=== PATIENT | male | born 1970 | race Caucasian/White ===

== ENCOUNTER 2019-03-14 09:33 | Emergency (ER) | payer OTHER ==
--- NOTE | 2019-03-14 10:23 | ED Physician Chart ---
ED Chief Complaint/HPI - Patient Information Date Seen:: 03/14/19 Time Seen:: 10:00 Chief Complaint:: Left Arm Redness History of Present Illness:: onset x 3 days of left forearm and left wrist pain, swelling, and erythema after an accidental fall 3 days [employer]; no report of LOC, ALOC, AMS, syncope, H/As , neck pain, weakness, dizziness, vertigo, paresthesias, C/P, SOB, Abd. Pain, A/ N/V/D/C, fever, chills, or urinary s/s; pt's last tetanus shot: > 5years Allergies:: Allergies Allergy/AdvReac Type Severity Reaction Status Date / Time No Known Allergies Allergy Verified 03/14/19 09:59 Vitals:: Vital Signs - 8 hr 03/14/19 09:59 Temp 98.4 F HR 105 RR 16 BP 164/114 O2 Sat % 98 Historian:: Patient, EMS Review:: Nurse's Note Reviewed, Old Chart Reviewed, EMS run form Reviewed ED Review of Systems - Review of Systems General/Constitutional: No fever, No chills, No weight loss, No weakness, No diaphoresis, No edema, No loss of appetite Skin: No skin lesions, No rash, No bruising Head: No headache, No light-headedness Eyes: No loss of vision, No pain, No diplopia ENT: No earache, No nasal drainage, No sore throat, No tinnitus Neck: No neck pain, No swelling, No thyromegaly, No stiffness, No mass noted Cardio Vascular: No chest pain, No palpitations, No PND, No orthopnea, No edema Pulmonary: No SOB, No cough, No sputum, No wheezing GI: No nausea, No vomiting, No diarrhea, No pain, No melena, No hematochezia, No constipation, No hematemesis G/U: No dysuria, No frequency, No hematuria, No nacturia Musculoskeletal: No bone or joint pain, No back pain, No muscle pain Endocrine: No polyuria, No polydipsia Psychiatric: No prior psych history, No depression, No anxiety, No suicidal ideation, No homicidal ideation, No auditory hallucination, No visual hallucination Hematopoietic: No bruising, No lymphadenopathy Allergic/Immuno: No urticaria, No angioedema Neurological: No syncope, No focal symptoms, No weakness, No paresthesia, No headache, No seizure, No dizziness, No confusion, No vertigo ED Past Medical History - Past Medical History Obtainable: Yes Past Medical History: HTN, DM, Dyslipidemia Family History: HTN Social History: Non Smoker, No Alcohol, No Drug Use, Surgical History: None Psychiatricy History: None Medication: Reviewed Family Medical History - Family Member Mother History Unknown: Yes ED Physical Exam - Physical Examination General/Constitutional: Awake, Well-developed, well-nourished, Alert, No distress, GCS 15, Non-toxic appearing, Ambulatory Head: Atraumatic Eyes: Lids, conjuctiva normal, PERRL, EOMI Skin: Nl inspection, No rash, No skin lesions, No ecchymosis, Well hydrated, No lymphadenopathy ENMT: External ears, nose nl, TM canals nl, Nasal exam nl, Lips, teeth, gums nl , Oropharynx nl, Tonsils nl Neck: Nontender, Full ROM w/o pain, No JVD, No nuchal rigidity, No bruit, No mass, No stridor Other Neck comments:: supple; no meningeal signs; no cervical tenderness Respiratory: Nl effort/Exclusion, Clear to Auscultation, No Wheeze/Rhonchi/Rales Cardio Vascular: RRR, No murmur, gallop, rubs, NL S1 S2, Carotid/Femoral/Distal pulses equal bilaterally GI: No tenderness/rebounding/guarding, No organomegaly, No hernia, Normal BS's, Nondistended, No mass/bruits, No McBurney tenderness Other GI comments:: no pulsatile masses : No CVA tenderness Extremities: No tenderness or effusion, Full ROM, normal strength in all extremities, No edema, Normal digits & nails Other Extremities comments:: Left Forearm and Left Wrist Cellulitis and Tenderness; good NV functions Neuro/Psych: Alert/oriented, DTR's symmetric, Normal sensory exam, Normal motor strength, Judgement/insight normal, Mood normal, Normal gait, No focal deficits Misc: Normal back, No paraspinal tenderness ED Labs/Radiology/EKG Results - Lab Results Results: Laboratory Tests 03/14/19 09:53 POC Glucose 340 H Comments:: Reviewed - Radiology Results Comments:: + Comminuted, Angulated Left Distal Radius Bone Fracture of the Left Wrist - EKG Interpretations EKG Time:: 10:26 Rate & Rhythm: 90; NSR Comments:: LVH; non-specific st-t changes ED Septic Shock - . Is Septic Shock (SBP<90, OR Lactate>4 mmol\L) present?: No - <6hrs of presentation: Vital Signs: Vital Signs - 8 hr 03/14/19 09:59 Temp 98.4 F HR 105 RR 16 BP 164/114 O2 Sat % 98 ED Reassessment (Disposition) - Reassessment Reassessment Condition:: Improved - Diagnosis Diagnosis:: LUE Cellulitis; HTN; DM; Left Wrist/Forearm Fractures; Hyponatremia; Hypokalemia ; Dehydration; Hyperglycemia; Hypoalbuminemia; Tachycardia; Uncontrolled Hypertension - Aftercare/Follow up Instructions Aftercare/Follow-Up Instructions:: Counseled pt regarding lab results/diagnosis & need follow up, Counseled pt & family regarding lab results/diagnosis & need follow up - Patient Disposition Discharge/Transfer:: Acute Care (other hosp) Accepting Physician:: [facility] Hospitalist Physician Time Called:: 1145 Time Responded:: 11:45 Admitted to:: Telemetry Spoke to:: [facility] Ad[facility] Condition at Disposition:: Stable, Improved (pt to be transferred via [facility] as a direct admission to [facility] Telemetry Unit)
[2019-03-14] MEDS ORDERED: NITROGLYCERIN OINT 2% 1 INCH PACKET TP ONE (10:33)
[2019-03-14] MEDS: cefTRIAXone 1 GM in Sodium Chloride 0.9% 50 ML IV ONE (10:47)
[2019-03-14] MEDS: NITROGLYCERIN OINT 2% 1 INCH PACKET TP STA (10:54)
[2019-03-14 11:03] LABS: URINE SOURCE MIDSTREAM
[2019-03-14 11:07] LABS: HEMATOCRIT 46.3 % (41.0-60); HEMOGLOBIN 15.7 gm/dL (12-16); MEAN CELL VOLUME 88.5 fl (80-99); MEAN CORPUSCULAR HGB CONC 33.9 pg (28.0-36.0); PLATELET COUNT 278 Th/cmm (150-400); RED BLOOD COUNT 5.23 Mil/cmm (4.30-5.70); RED CELL DISTRIBUTION WIDTH 13.2 % (11.5-20.0); URINE BILIRUBIN SMALL (NEGATIVE); URINE BLOOD TRACE (NEGATIVE); URINE GLUCOSE (UA) >=1000 mg/dL (NEGATIVE); URINE KETONE 40 mg/dL (NEGATIVE); URINE LEUKOCYTE ESTERASE NEGATIVE (NEGATIVE); URINE MICROSCOPIC INDICATED? YES; URINE NITRATE NEGATIVE (NEGATIVE); URINE PH 6.5 (4.6 - 8.0); URINE PROTEIN 100 mg/dL (NEGATIVE); WHITE BLOOD COUNT 8.3 Th/cmm (4.8-10.8)
--- NOTE | 2019-03-14 11:21 | Diagnostic Imaging Report ---
Left forearm (2 views) HISTORY: Pain, trauma The exam demonstrates a comminuted, displaced fracture of the distal radius. The radiocarpal joint space appears normal. IMPRESSION: Distal radial fracture
--- NOTE | 2019-03-14 11:21 | Diagnostic Imaging Report ---
Left wrist (3 views) HISTORY: Pain, trauma There is a comminuted, displaced fracture of the distal radius. The radiocarpal joint space appears normal. No focal abnormality seen about the carpal or metacarpal regions. IMPRESSION: 1. Distal radial fracture
[2019-03-14 11:40] LABS: INR 0.92 (0.5-1.4); PROTHROMBIN TIME (TEST) 9.6 SECONDS (9.5-11.5)
[2019-03-14 11:47] LABS: TROP I 0.04 ng/mL (0.01-0.05)
[2019-03-14 11:48] LABS: ALB/GLOB RATIO 1.6 (1.0-1.8); ALBUMIN 3.7 gm/dL (4.2-5.5); ALKALINE PHOSPHATASE 92 U/L (34-104); ANION GAP 15.4 (7.0-16.0); BILIRUBIN,TOTAL 0.9 mg/dL (0.3-1.0); BUN - UREA NITROGEN 11 mg/dL (7-25); CALCIUM SERUM 8.6 mg/dL (8.6-10.3); CARBON DIOXIDE 26.5 mEq/L (21.0-31.0); CHLORIDE 96 mEq/L (98-107); CREATININE - SERUM 0.6 mg/dL (0.7-1.3); CREATININE KINASE 40 U/L (30-223); GFR AFRICAN-AMERICAN > 60.0 ml/min (>90); GFR NON AFRICAN-AMERICAN > 60.0 ml/min; GLUCOSE 326 mg/dL (70-105); SGOT 14 U/L (13-39); SGPT/ALT 24 U/L (7-52); SODIUM SERUM 135 mEq/L (136-145)
[2019-03-14 11:56] LABS: POTASSIUM SERUM 2.9 mEq/L (3.5-5.1)
[2019-03-14 12:02] LABS: URINE CLARITY CLEAR (CLEAR); URINE COLOR YELLOW
[2019-03-14 12:03] LABS: URINE BACTERIA FEW /hpf (NONE SEEN); URINE EPITHELIAL CELLS NONE SEEN /lpf (FEW); URINE WBC 0-2 /hpf (0-5)
[2019-03-14] MEDS: Potassium Chloride 20 mEq ER Tab PO ONE (13:07)
[2019-03-14] MEDS ORDERED: Potassium Chloride 20 mEq ER Tab PO ONE (13:07)
[2019-03-14] MEDS: Sodium Chloride 0.9% 1,000 ML IV ONE (13:08)
[2019-03-14] MEDS: INSULIN HUMAN REGULAR 100 UNITS/ML UNIT SUBQ ONE (13:15)
[2019-03-14] MEDS ORDERED: INSULIN HUMAN REGULAR 100 UNITS/ML UNIT ONE (13:15)
[2019-03-14 13:42] LABS: BAND NEUTROPHILE 0 % (0-10); LYMPHOCYTE 8 % (20-50); MONOCYTE 6 % (2-10); NEUTROPHILS 95 % (40-80)
[2019-03-14 13:43] LABS: BASOPHIL 0 % (0-3); EOSINOPHIL 1 % (0-5)
== END 2019-03-14 18:20 | disposition home or self-care (01) ==
LOC: EDBD 09:33 → ER 09:33
DX: S52.592A Other fractures of lower end of left radius, initial encounter for closed fracture (principal); E87.6 Hypokalemia; E87.1 Hypo-osmolality and hyponatremia; E86.0 Dehydration; E11.65 Type 2 diabetes mellitus with hyperglycemia; I10 Essential (primary) hypertension; L03.114 Cellulitis of left upper limb; E88.09 Other disorders of plasma-protein metabolism, not elsewhere classified; R00.0 Tachycardia, unspecified; W18.39XA Other fall on same level, initial encounter; Y93.89 Activity, other specified; Y92.89 Other specified places as the place of occurrence of the external cause; Y99.8 Other external cause status
CPT/HCPCS: 99285; 96365; 96372; 93005; 73110; 73090; 84484; 36415; 36416 ×2; 82948 ×2; 83605; 85007; 85025; 85610; 85730; 81001; 82550; 83036; 80053; 87040 ×2; 90715; J0696; J1815; J7030; Z7610